=== PATIENT | female | born 1975 | race Caucasian/White ===

== ENCOUNTER 2017-04-28 09:20 | Emergency (ER) | payer SELFPAY ==
[2017-04-28 10:01] LABS: BILIRUBIN,URINE NEGATIVE (NEG); CLARITY,URINE CLEAR; COLOR,URINE YELLOW; GLUCOSE,URINE >=1000 mg/dL (NEG); NITRITE,URINE NEGATIVE (NEG); PROTEIN,URINE NEGATIVE (NEG-TRACE); UROBILINOGEN,URINE 0.2 mg/dL (0.2 mg/dL)
[2017-04-28 10:06] LABS: SQUAMOUS EPITHELIAL CELL,UR MANY /LPF
[2017-04-28 10:07] LABS: BACTERIA,URINE MODERATE /HPF (0-FEW)
[2017-04-28 10:08] LABS: RBC,URINE >40 /HPF (0-2)
[2017-04-28 10:10] LABS: BARBITURATES NEG (NEG); BENZODIAZEPINES NEG (NEG); CANNABINOIDS NEG (NEG); COCAINE NEG (NEG); METHADONE NEG (NEG); OPIATES POS (NEG); PHENCYCLIDINE NEG (NEG)
[2017-04-28 10:17] LABS: AMPHETAMINE/METHAMPHETAMINE NEG (NEG); ETHANOL, URINE NEG (NEG)
[2017-04-28 10:18] LABS: ADD MAN DIFF? NO
[2017-04-28 10:19] LABS: BASO % 0 % (0-3); EOS # 0.1 x10^3/uL (0.0-0.7); EOS % 2 % (0-3); HEMATOCRIT 44.1 % (36.0-47.0); HEMOGLOBIN 14.7 g/dL (12.0-15.5); LYMPH # 0.7 x10^3/uL (1.0-4.8); LYMPH % 12 % (24-48); MEAN CORPUSCULAR HEMOGLOBIN 30 pg (25-35); MEAN CORPUSCULAR HGB CONC 33 g/dL (31-37); MEAN CORPUSCULAR VOLUME 89 fL (79-100); MONO # 0.4 x10^3/uL (0.0-1.1); MONO % 6 % (0-9); NEUT # 4.7 x10^3uL (1.8-7.7); NEUT % 79 % (31-73); PLATELET COUNT 284 x10^3/uL (140-400); RED BLOOD COUNT 4.95 x10^6/uL (3.50-5.40); RED CELL DISTRIBUTION WIDTH 14.4 % (11.5-14.5); WHITE BLOOD COUNT 5.9 x10^3/uL (4.0-11.0)
[2017-04-28 10:33] LABS: ANION GAP 14 (6-14); BLOOD UREA NITROGEN 8 mg/dL (7-20); CALCIUM 9.4 mg/dL (8.5-10.1); CARBON DIOXIDE 21 mmol/L (21-32); CHLORIDE 102 mmol/L (98-107); CREATININE 0.9 mg/dL (0.6-1.0); GFR 68.7; GLUCOSE 360 mg/dL (70-99); POTASSIUM 3.3 mmol/L (3.5-5.1); SODIUM 137 mmol/L (136-145)
[2017-04-28 10:44] LABS: ALBUMIN 3.8 g/dL (3.4-5.0); ALK PHOS 102 U/L (46-116); ALT (SGPT) 82 U/L (14-59); AST (SGOT) 55 U/L (15-37); DIRECT BILIRUBIN 0.1 mg/dL (0.0-0.2); TOTAL BILIRUBIN 0.3 mg/dL (0.2-1.0); TOTAL PROTEIN 7.6 g/dL (6.4-8.2)
[2017-04-28] MEDS: IV NORMAL SALINE 1000ML BAG 1,000 ML IV ×2 (11:01)
[2017-04-28] MEDS: MORPHINE SULFATE 4 MG/ML DISP.SYRIN. IV/SQ ×6 (11:01→12:01)
[2017-04-28] MEDS: ONDANSETRON PF 4 MG/2 ML VIAL. IV ×2 (11:01)
== END 2017-04-28 13:41 | disposition home or self-care (01) ==
LOC: ER 09:20
DX: N20.0 Calculus of kidney (principal)
CPT/HCPCS: 36415; 76770; 80048; 80076; 80307; 81001; 85025; 87086; 96361; 96374; 96375; 96376; 99285-25; J2270; J2405; J7030